=== PATIENT | female | born 1935 | race African-American/Black ===

== ENCOUNTER 2017-06-02 06:07 | Emergency (ER) | payer MEDICARE, MEDICAID ==
[~2017-06-02] VITALS: Ht 185.4 cm; Wt 90.7 kg
[2017-06-02 06:07] VITALS: BP 191/90
[2017-06-02] MEDS ORDERED: Solu-MEDROL 125mg Inj IVP ONE (06:15)
[2017-06-02] MEDS ORDERED: Albuterol ud Inhalation HHN ONE (06:15)
[2017-06-02] MEDS ORDERED: Ipratropium 0.02% Inh Soln 2.5ml UD HHN ONE (06:15)
[2017-06-02] MEDS ORDERED: COREG12.5 MG GT (06:28)
[2017-06-02] MEDS ORDERED: ALBUTEROL2.5 MG/3 M INH (06:28)
[2017-06-02] MEDS ORDERED: LEVOTHYROXINE112 MCG GT (06:28)
[2017-06-02] MEDS ORDERED: KEPPRA LIQ100 MG/1 M GT (06:28)
[2017-06-02] MEDS ORDERED: ARICEPT10 MG GT (06:28)
[2017-06-02] MEDS ORDERED: LISINOPRIL5 MG GT (06:28)
--- NOTE | 2017-06-02 06:30 | Emergency Room Report ---
History of Present Illness General Chief Complaint: Dyspnea/Respdistress Source: Medical Record, EMS Present Illness HPI Is an 82-year-old female with a history of CVA with weakness. She is bed bound a senior care patient. She presents with chief complaint of shortness of breath and wheezing. Onset this morning per EMS. shelter gave her a breathing treatment and epinephrine because of the wheezing and drop in oxygenation to the low 90s. Per EMS on arrival observation was on her percent. They brought her here. Unable to get any history from this patient. Allergies: Coded Allergies: PENICILLINS (Verified Allergy, Unknown, 06/02/17) Patient History Past Medical History: see triage record, old chart reviewed Past Surgical History: other Pertinent Family History: none Social History: Denies: smoking Last Menstrual Period: NA Now: No Immunizations: other Reviewed Nursing Documentation: PMH: Agreed, PSxH: Agreed Nursing Documentation-PM Hx Hypertension: Yes - hyperlipidemia, postprocedural hypothyroidism Review of Systems Respiratory: Reports: cough, shortness of breath, wheezing All Other Systems: limited - Because the patient condition Physical Exam Vital Signs Date Time Temp Pulse Resp B/P (MAP) Pulse Ox O2 Delivery O2 Flow Rate FiO2 06/02/17 05:59 99.3 102 22 191/90 100 Nasal Cannula 2.0 vitals low-grade fever and hypoxia. Also with high pressure Sp02 EP Interpretation: abnormal General Appearance: moderate distress Head: normocephalic, atraumatic Eyes: bilateral eye PERRL, bilateral eye EOMI ENT: dry mucus membranes Neck: full range of motion, supple, no meningismus Respiratory: chest non-tender, respiratory distress, decreased breath sounds, accessory muscle use, wheezing Cardiovascular #1: regular rate, rhythm, no murmur Gastrointestinal: normal bowel sounds, non tender, no mass, no organomegaly, no bruit, non-distended Musculoskeletal: back normal, other - Contracted Skin: warm/dry Procedures Critical Care Time Critical Care Time Critical care is mandated in this patient who presented with respiratory distress. Patient require my urgent intervention to attenuate the risks of respiratory collapse which may lead to cardiovascular collapse and . Critical care time is 35 minutes excluding any reportable procedure. Critical care time included evaluation, multiple reevaluation, looking at old charts, interpreting laboratory and diagnostic data, discussing case with patient and family and consultants, and charting. Medical Decision Making Diagnostic Impression: Primary Impression: Respiratory distress ER Course Patient to be in respiratory distress. Differential include ACS, PE, pneumonia , asthma exacerbation, CHF to name a few. Patient will be admitted versus transfer to [place]. I will sign this patient out to Dr. Perez for final disposition. EKG Diagnostic Results Rate: tachycardiac Rhythm: NSR ST Segments: other - NSST changes Rhythm Strip Diag. Results Rhythm Strip Time: 06:29 EP Interpretation: yes Rate: 105 Rhythm: NSR, no PVC's Last Vital Signs Date Time Temp Pulse Resp B/P (MAP) Pulse Ox O2 Delivery O2 Flow Rate FiO2 06/02/17 05:59 99.3 102 22 191/90 100 Nasal Cannula 2.0 Status: improved Disposition: [facility] Condition: Serious YINA GIFFORD M.D. Jun 02, 2017 06:30
[2017-06-02 07:14] LABS: BASOPHILS % (AUTO) 1.2 % (0.0-2.0); HEMATOCRIT 39.1 % (37.0-47.0); HEMOGLOBIN 12.6 G/DL (12.0-16.0); LYMPHOCYTES % (AUTO) 18.8 % (20.0-45.0); MEAN CORPUSCULAR VOLUME 80 FL (80-99); MONOCYTES % (AUTO) 11.7 % (1.0-10.0); NEUTROPHILS % (AUTO) 65.3 % (45.0-75.0); PLATELET COUNT 297 K/UL (150-450); RED BLOOD COUNT 4.91 M/UL (4.20-5.40); RED CELL DISTRIBUTION WIDTH 18.1 % (11.6-14.8); WHITE BLOOD COUNT 6.2 K/UL (4.8-10.8)
[2017-06-02 07:16] LABS: APPEARANCE,URINE CLOUDY; BILIRUBIN, URINE NEGATIVE (NEGATIVE); COLOR,URINE PALE YELLOW; GLUCOSE, URINE (UA) NEGATIVE (NEGATIVE); KETONES,URINE NEGATIVE (NEGATIVE); LEUKOCYTE ESTERASE ,URINE NEGATIVE (NEGATIVE); NITRITE,URINE NEGATIVE (NEGATIVE); PH,URINE 8 (4.5-8.0); PROTEIN,URINE 1+ (NEGATIVE); UROBILINOGEN,URINE NORMAL MG/DL (0.0-1.0)
[2017-06-02 07:45] LABS: ANION GAP 6 mmol/L (5-15); BLOOD UREA NITROGEN 19 mg/dL (7-18); CALCIUM 9.5 MG/DL (8.5-10.1); CARBON DIOXIDE 33 MMOL/L (21-32); CHLORIDE 102 MMOL/L (98-107); CREATININE 0.8 MG/DL (0.55-1.30); POTASSIUM 4.3 MMOL/L (3.5-5.1); SODIUM 141 MMOL/L (136-145)
[2017-06-02 07:58] LABS: ALANINE AMINOTRANSFERASE 21 U/L (12-78); ALBUMIN 3.2 G/DL (3.4-5.0); ALBUMIN/GLOBULIN RATIO 0.7 (1.0-2.7); ALKALINE PHOSPHATASE 116 U/L (46-116); ASPARTATE AMINO TRANSFERASE 28 U/L (15-37); BILIRUBIN,TOTAL 0.3 MG/DL (0.2-1.0); CKMB 1.1 NG/ML (0.0-3.6); CREATINE KINASE 372 U/L (26-308)
--- NOTE | 2017-06-02 10:29 | Diagnostic Imaging Report ---
Indication: Shortness of breath Technique: XRAY Chest 1v Comparison: None Findings: Patient is rotated and leaning to the right. Heart size within normal limits. There is hazy opacification of the left lung, possibly artifactual given rotation. There is mild interstitial opacification/edema. There is no definite pneumothorax. No large pleural effusion. No acute osseous abnormality seen. Surgical clips project over the right apex. Impression: Limited exam given. Interstitial opacification and hazy left lung opacities. Findings may be related to CHF with pulmonary edema and/or infectious infiltrate. These findings may also be artifactually exaggerated due to positioning and technique. Repeat exam recommended.
[2017-06-02 10:59] VITALS: BP 188/102
--- NOTE | 2017-06-02 15:12 | Emergency Room Report ---
Physical Exam Vital Signs Date Time Temp Pulse Resp B/P (MAP) Pulse Ox O2 Delivery O2 Flow Rate FiO2 06/02/17 05:59 99.3 102 22 191/90 100 Nasal Cannula 2.0 06/02/17 06:33 28 Medical Decision Making Diagnostic Impression: Primary Impression: Respiratory distress Additional Impression: Asthma exacerbation Qualified Codes: J45.901 - Unspecified asthma with (acute) exacerbation ER Course Hospital Course 82-year-old female presents ED in respiratory distress short of breath at care home Clinical course patient initially seen and evaluated by Dr. Yao; please see his note for full history and physical Labs - no leukocytosis noted, hemoglobin/hematocrit stable, ultralight okay, lactate okay troponins negative CXR - L sided haziness concerning for pneumonia EKG - sinus tachycardia She received antibiotics. Given breathing treatments suctioned by respiratory therapy with improved O2 sats Because of insurance patient will be transferred to [place] I feel this is a highly complex case requiring extensive working including EKG/ Rhythm strip, Xray/CT/US, Blood/urine lab work, repeat exams while in ED, and administration of strong opiates/narcotics for pain control, admission to hospital or close patient follow up. Diagnosis - resp distress, asthma exacerbation Transferred in serious condition Labs Test 06/02/17 06:21 06/02/17 07:00 White Blood Count 6.2 K/UL (4.8-10.8) Red Blood Count 4.91 M/UL (4.20-5.40) Hemoglobin 12.6 G/DL (12.0-16.0) Hematocrit 39.1 % (37.0-47.0) Mean Corpuscular Volume 80 FL (80-99) Mean Corpuscular Hemoglobin 25.6 PG (27.0-31.0) Mean Corpuscular Hemoglobin Concent 32.1 G/DL (32.0-36.0) Red Cell Distribution Width 18.1 % (11.6-14.8) Platelet Count 297 K/UL (150-450) Mean Platelet Volume 7.4 FL (6.5-10.1) Neutrophils (%) (Auto) 65.3 % (45.0-75.0) Lymphocytes (%) (Auto) 18.8 % (20.0-45.0) Monocytes (%) (Auto) 11.7 % (1.0-10.0) Eosinophils (%) (Auto) 3.0 % (0.0-3.0) Basophils (%) (Auto) 1.2 % (0.0-2.0) Prothrombin Time 10.6 SEC (9.30-11.50) Prothromb Time International Ratio 1.0 (0.9-1.1) Activated Partial Thromboplast Time 28 SEC (23-33) Sodium Level 141 MMOL/L (136-145) Potassium Level 4.3 MMOL/L (3.5-5.1) Chloride Level 102 MMOL/L (98-107) Carbon Dioxide Level 33 MMOL/L (21-32) Anion Gap 6 mmol/L (5-15) Blood Urea Nitrogen 19 mg/dL (7-18) Creatinine 0.8 MG/DL (0.55-1.30) Estimat Glomerular Filtration Rate mL/min (>60) Glucose Level 154 MG/DL (74-106) Lactic Acid Level 1.90 mmol/L (0.66-2.22) Calcium Level 9.5 MG/DL (8.5-10.1) Total Bilirubin 0.3 MG/DL (0.2-1.0) Aspartate Amino Transf (AST/SGOT) 28 U/L (15-37) Alanine Aminotransferase (ALT/SGPT) 21 U/L (12-78) Alkaline Phosphatase 116 U/L (46-116) Total Creatine Kinase 372 U/L (26-308) Creatine Kinase MB 1.1 NG/ML (0.0-3.6) Creatine Kinase MB Relative Index 0.2 Troponin I 0.000 ng/mL (0.000-0.056) Total Protein 7.9 G/DL (6.4-8.2) Albumin 3.2 G/DL (3.4-5.0) Globulin 4.7 g/dL Albumin/Globulin Ratio 0.7 (1.0-2.7) Urine Color Pale yellow Urine Appearance Cloudy Urine pH 8 (4.5-8.0) Urine Specific [place] 1.015 (1.005-1.035) Urine Protein 1+ (NEGATIVE) Urine Glucose (UA) Negative (NEGATIVE) Urine Ketones Negative (NEGATIVE) Urine Occult Blood 3+ (NEGATIVE) Urine Nitrite Negative (NEGATIVE) Urine Bilirubin Negative (NEGATIVE) Urine Urobilinogen Normal MG/DL (0.0-1.0) Urine Leukocyte Esterase Negative (NEGATIVE) Urine RBC 5-10 /HPF (0 - 2) Urine WBC 0-2 /HPF (0 - 2) Urine Squamous Epithelial Cells Moderate /LPF (NONE/OCC) Urine Amorphous Sediment Many /LPF (NONE) Urine Bacteria Few /HPF (NONE) EKG Diagnostic Results Rate: tachycardiac Rhythm: NSR ST Segments: no acute changes ASA given to the pt in ED: No Rhythm Strip Diag. Results EP Interpretation: yes Rhythm: NSR, no PVC's, no ectopy Chest X-Ray Diagnostic Results Chest X-Ray Diagnostic Results : Chest X-Ray Ordered: Yes # of Views/Limited/Complete: 1 View Indication: Shortness of Breath EP Interpretation: Yes Interpretation: no pneumothorax, other - L sided haziness Impression: Other - pneumonia Electronically Signed by: Electronically signed by Aldair Perez MD Last Vital Signs Date Time Temp Pulse Resp B/P (MAP) Pulse Ox O2 Delivery O2 Flow Rate FiO2 06/02/17 10:59 112 21 188/102 100 Room Air 06/02/17 10:21 98.8 06/02/17 06:57 2.0 28 Status: improved Disposition: [facility] Condition: Serious Referrals: [facility] (PCP) ALDAIR PEREZ M.D. Jun 02, 2017 15:12
--- NOTE | 2017-06-16 14:02 | Cardiology Report ---
APPROVED REPORT EKG Measurement Heart [id number] ME [id number] Sinus tachycardia Nonspecific T wave abnormality Abnormal ECG
== END 2017-06-02 10:57 | disposition short-term general hospital (02) ==
LOC: EDBD 06:07 → EMR 06:43
DX: J45.901 Unspecified asthma with (acute) exacerbation (principal); I10 Essential (primary) hypertension; E78.5 Hyperlipidemia, unspecified; E89.0 Postprocedural hypothyroidism; Z88.0 Allergy status to penicillin; Z74.01 Bed confinement status
CPT/HCPCS: 36415; 71045; 80053; 81003; 82550; 82553; 83605; 84484; 85025; 85610; 85730; 86710; 87081; 93005; 94640; 94664; 96365; 96375; 99285; J0360; J1956; J2930

== ENCOUNTER 2017-11-20 06:21 | Emergency (ER) | payer MEDICARE, MEDICAID ==
[~2017-11-20] VITALS: Ht 170.2 cm; Wt 108.9 kg
[~2017-11-20 06:21] MED LIST: ALBUTEROL2.5 MG/3 M INH; ARICEPT10 MG GT; COREG12.5 MG GT; KEPPRA LIQ100 MG/1 M GT; LEVOTHYROXINE112 MCG GT; LISINOPRIL5 MG GT
[2017-11-20] MEDS ORDERED: Cefepime HCl 1 GM in NS 55 ML IV STA (06:29)
[2017-11-20] MEDS ORDERED: Vancomycin 1 GM in NS 275 ML IV ONE (06:30)
[2017-11-20] MEDS ORDERED: Acetaminophen 650 MG SUPP RECTAL ONE (06:30)
[2017-11-20] MEDS ORDERED: LISINOPRIL10 MG ORAL (06:33)
--- NOTE | 2017-11-20 06:49 | Emergency Room Report ---
History of Present Illness General Chief Complaint: Altered Level of Consciousness Source: Medical Record, EMS Present Illness HPI Patient presents with altered level of consciousness. She usually is quite feisty but has dementia. She comes from a assisted facility. Patient is a DO NOT RESUSCITATE H/O dementia, HTN, Aortic valve sclerosis, seizures, G tube, hypothyroidism, CVA , IC hemorrhage No other history is available at this time. Allergies: Coded Allergies: PENICILLIN V (Verified Allergy, Unknown, 11/20/17) PENICILLINS (Verified Allergy, Unknown, 06/02/17) SIMVASTATIN (Verified Allergy, Unknown, 11/20/17) Patient History Limited by: medical condition Past Medical History: see triage record, old chart reviewed Social History: Denies: smoking, alcohol use, drug use Social History Narrative SNF Last Menstrual Period: n/a Reviewed Nursing Documentation: PMH: Agreed; PSxH: Agreed Nursing Documentation-PMH Past Medical History: No History, Except For Hx Hypertension: Yes - hyperlipidemia, postprocedural hypothyroidism Review of Systems All Other Systems: limited Physical Exam Vital Signs Date Time Temp Pulse Resp B/P (MAP) Pulse Ox O2 Delivery O2 Flow Rate FiO2 11/20/17 06:20 99.2 115 16 186/99 96 Room Air 99.1 Sp02 EP Interpretation: reviewed, normal General Appearance: other - Eyes open but noncommunicative, Chronically Ill Head: normocephalic Eyes: bilateral eye normal inspection, bilateral eye PERRL ENT: moist mucus membranes Neck: supple Respiratory: lungs clear, normal breath sounds Cardiovascular #1: regular rate, rhythm, systolic murmur - 3/6 Cardiovascular #2: 2+ radial (R) Gastrointestinal: normal inspection, normal bowel sounds, non tender, soft, no mass, other - G tube, overweight Musculoskeletal: back normal Neurologic: other - Vegetative state Psychiatric: other - Not responding to external stimuli but eyes open Skin: normal inspection, warm/dry Procedures Critical Care Time Critical Care Time Total Critical Care Time: 60 min bedside evaluation and treatment excludes procedures (EKG, CVP). Reason for critical care: sepsis, hypertensive urgency, ALOC Possible complications: hypotension, hypertension, IA, shock, arrhythmias, metabolic acidosis, end organ damage, respiratory failure. Interventions: CVP, treatment of sepsis, treatment of hypertensive urgency Course: Patient with AMS. Exam c/w sepsis (febrile, tachy, ALOC). CVP as no IV sites or ability to draw blood. Fluid resuscitation and antibiotics begun. Source appears pulmonary (new infiltrate and effusion, no other obvious source) . Discussed with [facility]. Problems with HTN prevented initial transfer. Aggressive treatment with multiple doses of hydralazine and repeated evaluations with eventual better control of BP. Discussed again with Grace. Consultations: nursing staff, EMS, , Sanjay Performed by: Dr. Toledo Tolerated well condition = serious Central Line Central Line : Consent: Emergent Central Line Lumen: triple Maximal Sterile Barrier Tech: yes cap, yes mask, yes sterile gown, yes sterile gloves, yes large sterile sheet, yes hand hygiene, yes chlorhexidine prep Central Line Postion: femoral (L) Complications: none Central Line Post Position: sutured, good blood return Attempts: One Patient Tolerated: Well Complications: None Progress Ultrasound used. Blood drawn for lab (30 ml) otherwise 1 ml EBL Medical Decision Making Diagnostic Impression: Primary Impression: Sepsis Qualified Codes: A41.9 - Sepsis, unspecified organism Additional Impressions: Pneumonia Qualified Codes: J18.1 - Lobar pneumonia, unspecified organism HTN (hypertension) Qualified Codes: I10 - Essential (primary) hypertension ER Course Patient presents with altered level of consciousness with fever. Differential includes sepsis, urinary tract infection, pneumonia amongst other Hospital infection. Based on the pulse oximetry in no respiratory symptoms as suspicion for urinary tract infection is high. The patient will be given IV hydration and also antibiotics after evaluation with EKG, chest x-ray and labs including blood cultures and lactate. Due to febrile illness, suspicion of new intracranial pathology low (although possible). Staff unable to start IV or draw blood. CVP started with ultrasound L femoral. Bloods drawn. EKG without injury. CXR L effusion and infiltrate. Labs with leukocytosis, elevated lactic acid. Urinalysis a relatively clear. Patient with decreasing lactic acid but still elevated after fluid bolus. Minimally tachycardic. [facility] has been called to work on arranging for transfer. Discussed with [facility] who accepts patient in transfer. Improved. More interactive. Abd soft. BP high, giving lisonpril. Still high bp. Hydralazine given. Multiple doses of hydralazine with improved BP. At 15:21 - BP 172/84. Calling for transport. Laboratory Tests Test 11/20/17 06:29 11/20/17 06:45 11/20/17 08:00 11/20/17 09:15 Sodium Level 136 MMOL/L (136-145) Potassium Level 3.9 MMOL/L (3.5-5.1) Chloride Level 96 MMOL/L (98-107) L Carbon Dioxide Level 29 MMOL/L (21-32) Anion Gap 11 mmol/L (5-15) Blood Urea Nitrogen 18 mg/dL (7-18) Creatinine 0.9 MG/DL (0.55-1.30) Estimate Glomerular Filtration Rate mL/min (>60) Glucose Level 200 MG/DL (74-106) H Calcium Level 9.3 MG/DL (8.5-10.1) Phosphorus Level 3.6 MG/DL (2.5-4.9) Magnesium Level 1.9 MG/DL (1.8-2.4) Total Bilirubin 0.8 MG/DL (0.2-1.0) Aspartate Amino Transferase (AST) 20 U/L (15-37) Alanine Aminotransferase (ALT) 29 U/L (12-78) Alkaline Phosphatase 116 U/L (46-116) Total Creatine Kinase 63 U/L (26-308) Pro-B-Type Natriuretic Peptide 486 pg/mL (0-125) H Total Protein 8.1 G/DL (6.4-8.2) Albumin 3.4 G/DL (3.4-5.0) Globulin 4.7 g/dL Albumin/Globulin Ratio 0.7 (1.0-2.7) L Lipase 107 U/L (73-393) Urine Color Pale yellow Urine Appearance Slightly cloudy Urine pH 6 (4.5-8.0) Urine Specific [place] 1.015 (1.005-1.035) Urine Protein 3+ (NEGATIVE) H Urine Glucose (UA) 2+ (NEGATIVE) H Urine Ketones Negative (NEGATIVE) Urine Occult Blood 4+ (NEGATIVE) H Urine Nitrite Negative (NEGATIVE) Urine Bilirubin Negative (NEGATIVE) Urine Urobilinogen Normal MG/DL (0.0-1.0) Urine Leukocyte Esterase Negative (NEGATIVE) Urine RBC 10-15 /HPF (0 - 2) H Urine WBC 0-2 /HPF (0 - 2) Urine Squamous Epithelial Cells Few /LPF (NONE/OCC) Urine Bacteria Few /HPF (NONE) Urine Hyaline Casts 0-2 /LPF (NONE) H Prothrombin Time 12.1 SEC (9.30-11.50) H Prothrombin Time INR 1.2 (0.9-1.1) H PTT 21 SEC (23-33) L Lactic Acid Level 5.90 mmol/L (0.4-2.0) H 4.00 mmol/L (0.66-2.22) H Troponin I 0.017 ng/mL (0.000-0.056) White Blood Count 12.5 K/UL (4.8-10.8) H Red Blood Count 3.89 M/UL (4.20-5.40) L Hemoglobin 10.0 G/DL (12.0-16.0) L Hematocrit 30.7 % (37.0-47.0) L Mean Corpuscular Volume 79 FL (80-99) L Mean Corpuscular Hemoglobin 25.7 PG (27.0-31.0) L Mean Corpuscular Hemoglobin Concent 32.6 G/DL (32.0-36.0) Red Cell Distribution Width 15.6 % (11.6-14.8) H Platelet Count 235 K/UL (150-450) Mean Platelet Volume 7.5 FL (6.5-10.1) Neutrophils (%) (Auto) % (45.0-75.0) Lymphocytes (%) (Auto) % (20.0-45.0) Monocytes (%) (Auto) % (1.0-10.0) Eosinophils (%) (Auto) % (0.0-3.0) Basophils (%) (Auto) % (0.0-2.0) Neutrophils % (Manual) Pending Lymphocytes % (Manual) Pending Platelet Estimate Pending Platelet Morphology Pending EKG Diagnostic Results Rate: tachycardiac ST Segments: no acute changes Rhythm Strip Diag. Results EP Interpretation: yes Rhythm: no PVC's, no ectopy, other - Sinus tachycardia Chest X-Ray Diagnostic Results Chest X-Ray Diagnostic Results : Chest X-Ray Ordered: Yes # of Views/Limited/Complete: 1 View Indication: Other EP Interpretation: Yes Interpretation: no pneumothorax, other - effusion and infiltrate L base Impression: Other Electronically Signed by: Electronically signed by Yonatan Toledo MD Last Vital Signs Date Time Temp Pulse Resp B/P (MAP) Pulse Ox O2 Delivery O2 Flow Rate FiO2 7/12/18 17:07 98.7 107 14 190/76 100 Room Air 98.5 Status: improved Disposition: [facility] Condition: Serious Yonatan Toledo M.D. Nov 20, 2017 06:49
[2017-11-20 07:12] LABS: BILIRUBIN, URINE NEGATIVE (NEGATIVE); COLOR,URINE PALE YELLOW; GLUCOSE, URINE (UA) 2+ (NEGATIVE); KETONES,URINE NEGATIVE (NEGATIVE); LEUKOCYTE ESTERASE ,URINE NEGATIVE (NEGATIVE); NITRITE,URINE NEGATIVE (NEGATIVE); PH,URINE 6 (4.5-8.0); PROTEIN,URINE 3+ (NEGATIVE); UROBILINOGEN,URINE NORMAL MG/DL (0.0-1.0)
[2017-11-20 07:20] LABS: APPEARANCE,URINE SLIGHTLY CLOUDY
[2017-11-20 08:26] VITALS: BP 165/89
[2017-11-20 08:43] LABS: ANION GAP 11 mmol/L (5-15); BLOOD UREA NITROGEN 18 mg/dL (7-18); CALCIUM 9.3 MG/DL (8.5-10.1); CARBON DIOXIDE 29 MMOL/L (21-32); CHLORIDE 96 MMOL/L (98-107); CREATININE 0.9 MG/DL (0.55-1.30); POTASSIUM 3.9 MMOL/L (3.5-5.1); SODIUM 136 MMOL/L (136-145)
[2017-11-20 08:44] LABS: INR 1.2 (0.9-1.1)
[2017-11-20 08:53] LABS: ALANINE AMINOTRANSFERASE 29 U/L (12-78); ALBUMIN 3.4 G/DL (3.4-5.0); ALBUMIN/GLOBULIN RATIO 0.7 (1.0-2.7); ALKALINE PHOSPHATASE 116 U/L (46-116); ASPARTATE AMINO TRANSFERASE 20 U/L (15-37); BILIRUBIN,TOTAL 0.8 MG/DL (0.2-1.0); CREATINE KINASE 63 U/L (26-308); PHOSPHORUS 3.6 MG/DL (2.5-4.9)
[2017-11-20 09:34] LABS: HEMATOCRIT 30.7 % (37.0-47.0); MEAN CORPUSCULAR VOLUME 79 FL (80-99); PLATELET COUNT 235 K/UL (150-450); RED BLOOD COUNT 3.89 M/UL (4.20-5.40); RED CELL DISTRIBUTION WIDTH 15.6 % (11.6-14.8); WHITE BLOOD COUNT 12.5 K/UL (4.8-10.8)
[2017-11-20 09:46] VITALS: BP 178/101
[2017-11-20] MEDS ORDERED: VANCOMYCIN IVPB ONE (10:08)
[2017-11-20] MEDS ORDERED: [UNRECOGNIZED DRUG - OTHER] IVPB ONE (10:08)
[2017-11-20] MEDS ORDERED: Vancomycin 1gm inj IVPB ONE (10:09)
[2017-11-20 10:35] VITALS: BP 207/104
[2017-11-20] MEDS ORDERED: Lisinopril 10mg tab GT ONE (11:00)
--- NOTE | 2017-11-20 11:32 | Diagnostic Imaging Report ---
Indication: Chest pain Comparison: 06/02/2017 A single view chest radiograph was obtained. Findings: Interstitial opacities are present bilaterally. Heart is borderline enlarged. Bones are osteopenic. IMPRESSION: Suspected interstitial edema
[2017-11-20 12:45] VITALS: BP 211/102
[2017-11-20 14:36] VITALS: BP 211/116
[2017-11-20 17:07] VITALS: BP 190/76
--- NOTE | 2017-11-23 12:21 | Cardiology Report ---
APPROVED REPORT EKG Measurement Heart [id number] Sinus tachycardia Nonspecific T wave abnormality Abnormal ECG
== END 2017-11-20 17:07 | disposition short-term general hospital (02) ==
LOC: EDBD 06:21 → EMR 07:09
DX: A41.9 Sepsis, unspecified organism (principal); J18.9 Pneumonia, unspecified organism; I10 Essential (primary) hypertension; E78.5 Hyperlipidemia, unspecified; E89.0 Postprocedural hypothyroidism; Z88.0 Allergy status to penicillin; Z88.8 Allergy status to other drugs, medicaments and biological substances
CPT/HCPCS: 36415; 71045; 80053; 81003; 82550; 83605; 83690; 83735; 83880; 84100; 84484; 85007; 85025; 85610; 85730; 87040; 87081; 93005; 96365; 96367; 96375; 96376; 99291; J0360; J0692; J1956; J3370; J7050

== ENCOUNTER 2018-03-08 17:33 | Emergency (ER) | payer MEDICARE, MEDICAID ==
[~2018-03-08] VITALS: Ht 167.6 cm; Wt 86.2 kg
[~2018-03-08 17:33] MED LIST changes: +LISINOPRIL10 MG ORAL
[2018-03-08 17:56] VITALS: BP 150/91
[2018-03-08 19:30] LABS: APPEARANCE,URINE SLIGHTLY CLOUDY; BILIRUBIN, URINE NEGATIVE (NEGATIVE); COLOR,URINE AMBER; GLUCOSE, URINE (UA) NEGATIVE (NEGATIVE); KETONES,URINE 1+ (NEGATIVE); LEUKOCYTE ESTERASE ,URINE 1+ (NEGATIVE); NITRITE,URINE NEGATIVE (NEGATIVE); PH,URINE 6.5 (4.5-8.0); PROTEIN,URINE 3+ (NEGATIVE); UROBILINOGEN,URINE 1 MG/DL (0.0-1.0)
[2018-03-08 19:30] LABS: BASOPHILS % (AUTO) 1.7 % (0.0-2.0); EOSINOPHILS % (AUTO) 1.5 % (0.0-3.0); HEMOGLOBIN 12.9 G/DL (12.0-16.0); LYMPHOCYTES % (AUTO) 15.7 % (20.0-45.0); MEAN CORPUSCULAR VOLUME 81 FL (80-99); MONOCYTES % (AUTO) 5.5 % (1.0-10.0); NEUTROPHILS % (AUTO) 75.6 % (45.0-75.0); PLATELET COUNT 330 K/UL (150-450); RED BLOOD COUNT 4.83 M/UL (4.20-5.40); RED CELL DISTRIBUTION WIDTH 15.2 % (11.6-14.8); WHITE BLOOD COUNT 7.7 K/UL (4.8-10.8)
[2018-03-08 20:13] LABS: ANION GAP 8 mmol/L (5-15); BLOOD UREA NITROGEN 18 mg/dL (7-18); CALCIUM 9.8 MG/DL (8.5-10.1); CARBON DIOXIDE 31 MMOL/L (21-32); CHLORIDE 101 MMOL/L (98-107); CREATININE 0.7 MG/DL (0.55-1.30); POTASSIUM 4.5 MMOL/L (3.5-5.1); SODIUM 140 MMOL/L (136-145)
[2018-03-08 20:26] LABS: ALANINE AMINOTRANSFERASE 26 U/L (12-78); ALBUMIN 3.3 G/DL (3.4-5.0); ALBUMIN/GLOBULIN RATIO 0.7 (1.0-2.7); ALKALINE PHOSPHATASE 112 U/L (46-116); ASPARTATE AMINO TRANSFERASE 27 U/L (15-37); BILIRUBIN,TOTAL 0.5 MG/DL (0.2-1.0); CKMB 1.3 NG/ML (0.0-3.6); CREATINE KINASE 68 U/L (26-308); PHOSPHORUS 3.3 MG/DL (2.5-4.9)
[2018-03-08] MEDS ORDERED: Carvedilol 25mg Tab GT ONE (20:45)
[2018-03-08 21:00] VITALS: BP 163/79
--- NOTE | 2018-03-08 21:31 | Emergency Room Report ---
History of Present Illness General Chief Complaint: Malfunctioning Gastric Tube Source: Patient Present Illness HPI Patient is a 82-year-old female who is brought in by EMS from nursing facility after increased fever and dislodgment of G-tube. Patient reportedly had been having increased fever. She had been noted to have pulled out her G-tube per excellence coach. The patient was from nursing facility however they were unable to be contacted. Allergies: Coded Allergies: PENICILLIN V (Verified Allergy, Unknown, 11/20/17) PENICILLINS (Verified Allergy, Unknown, 06/02/17) SIMVASTATIN (Verified Allergy, Unknown, 11/20/17) Patient History Reviewed Nursing Documentation: PMH: Agreed; PSxH: Agreed Nursing Documentation-PMH Hx Hypertension: Yes - hyperlipidemia, postprocedural hypothyroidism Review of Systems All Other Systems: limited - by mental status Physical Exam Vital Signs Date Time Temp Pulse Resp B/P (MAP) Pulse Ox O2 Delivery O2 Flow Rate FiO2 03/08/18 17:34 97.0 118 24 134/89 97 Room Air 03/08/18 17:56 2.0 General Appearance: non-toxic, Chronically Ill Head: atraumatic Eyes: bilateral eye PERRL ENT: moist mucus membranes Neck: limited range of motion Respiratory: lungs clear, normal breath sounds Cardiovascular #1: normal peripheral pulses Gastrointestinal: non tender, soft, other - Gtube site patent with tube maximally inserted, slight erythema to stoma sit Musculoskeletal: decreased range of motion Neurologic: alert, motor weakness, other - increased tone, contractures, nonverbal Psychiatric: depressed affect Skin: normal inspection Medical Decision Making Diagnostic Impression: Primary Impression: Malfunction of percutaneous endoscopic gastrostomy (PEG) tube Additional Impressions: Lactic acidosis Uncontrolled hypertension ER Course Patient presented for G-tube abnormality. Patient was noted to be nonverbal. The patient's G-tube was noted to deep inside the stoma and was noted to be somewhat difficult to move.The patient G-tube was replaced with a 24 [place] G- tube. The procedure x-ray showed adequate G-tube placement. Patient was given IV fluids she is given medications for blood pressure control. The patient was discussed with Dr. Thornton from [facility] who will arrange transfer. Labs Test 03/08/18 19:00 03/08/18 19:15 03/08/18 19:30 03/08/18 20:30 White Blood Count 7.7 K/UL (4.8-10.8) Red Blood Count 4.83 M/UL (4.20-5.40) Hemoglobin 12.9 G/DL (12.0-16.0) Hematocrit 39.0 % (37.0-47.0) Mean Corpuscular Volume 81 FL (80-99) Mean Corpuscular Hemoglobin 26.6 PG (27.0-31.0) Mean Corpuscular Hemoglobin Concent 32.9 G/DL (32.0-36.0) Red Cell Distribution Width 15.2 % (11.6-14.8) Platelet Count 330 K/UL (150-450) Mean Platelet Volume 6.6 FL (6.5-10.1) Neutrophils (%) (Auto) 75.6 % (45.0-75.0) Lymphocytes (%) (Auto) 15.7 % (20.0-45.0) Monocytes (%) (Auto) 5.5 % (1.0-10.0) Eosinophils (%) (Auto) 1.5 % (0.0-3.0) Basophils (%) (Auto) 1.7 % (0.0-2.0) Sodium Level 140 MMOL/L (136-145) Potassium Level 4.5 MMOL/L (3.5-5.1) Chloride Level 101 MMOL/L (98-107) Carbon Dioxide Level 31 MMOL/L (21-32) Anion Gap 8 mmol/L (5-15) Blood Urea Nitrogen 18 mg/dL (7-18) Creatinine 0.7 MG/DL (0.55-1.30) Estimat Glomerular Filtration Rate mL/min (>60) Glucose Level 147 MG/DL (74-106) Calcium Level 9.8 MG/DL (8.5-10.1) Phosphorus Level 3.3 MG/DL (2.5-4.9) Magnesium Level 2.0 MG/DL (1.8-2.4) Total Bilirubin 0.5 MG/DL (0.2-1.0) Aspartate Amino Transf (AST/SGOT) 27 U/L (15-37) Alanine Aminotransferase (ALT/SGPT) 26 U/L (12-78) Alkaline Phosphatase 112 U/L (46-116) Total Creatine Kinase 68 U/L (26-308) Creatine Kinase MB 1.3 NG/ML (0.0-3.6) Creatine Kinase MB Relative Index 1.9 Troponin I 0.008 ng/mL (0.000-0.056) Total Protein 8.3 G/DL (6.4-8.2) Albumin 3.3 G/DL (3.4-5.0) Globulin 5.0 g/dL Albumin/Globulin Ratio 0.7 (1.0-2.7) Urine Color [place] Urine Appearance Slightly cloudy Urine pH 6.5 (4.5-8.0) Urine Specific [place] 1.020 (1.005-1.035) Urine Protein 3+ (NEGATIVE) Urine Glucose (UA) Negative (NEGATIVE) Urine Ketones 1+ (NEGATIVE) Urine Blood 4+ (NEGATIVE) Urine Nitrite Negative (NEGATIVE) Urine Bilirubin Negative (NEGATIVE) Urine Ictotest Negative (NEGATIVE) Urine Urobilinogen 1 MG/DL (0.0-1.0) Urine Leukocyte Esterase 1+ (NEGATIVE) Urine RBC 20-30 /HPF (0 - 2) Urine WBC 5-10 /HPF (0 - 2) Urine Squamous Epithelial Cells Moderate /LPF (NONE/OCC) Urine Bacteria Moderate /HPF (NONE) Lactic Acid Level 3.00 mmol/L (0.4-2.0) 2.90 mmol/L (0.66-2.22) Last Vital Signs Date Time Temp Pulse Resp B/P (MAP) Pulse Ox O2 Delivery O2 Flow Rate FiO2 03/08/18 21:00 114 207/103 03/08/18 17:56 98.9 16 98 Nasal Cannula 2.0 Status: unchanged Disposition: [facility]FER [facility]OS[facility] Condition: Serious Referrals: NON PHYSICIAN (PCP) Familia Maxwell MD Mar 08, 2018 21:31
[2018-03-08 22:00] VITALS: BP 151/71
[2018-03-08 23:48] VITALS: BP 140/84
--- NOTE | 2018-03-09 12:17 | Diagnostic Imaging Report ---
Indication: Dyspnea Comparison: 11/20/2017 A single view chest radiograph was obtained. Findings: Pulmonary vascular prominence and interstitial edema demonstrated. Heart size is within normal limits. Bones are slightly osteopenic. IMPRESSION: Suspected interstitial edema
--- NOTE | 2018-03-09 12:17 | Diagnostic Imaging Report ---
Indication: Gastrostomy check Comparison: None Single view of the abdomen obtained Findings: There is a catheter projected over the body of the stomach. There is contrast material within the stomach noted. There is a considerable breathing motion limiting evaluation. IMPRESSION: Gastrostomy position appears satisfactory. No obvious leak identified with limitation due to motion.
== END 2018-03-08 23:55 ==
LOC: EDUNIT# 17:33 → EDBD 17:33 → EMR 17:46
DX: K94.23 Gastrostomy malfunction (principal); E87.2 Acidosis; I10 Essential (primary) hypertension; E78.5 Hyperlipidemia, unspecified; E03.9 Hypothyroidism, unspecified; Z88.0 Allergy status to penicillin; Z88.8 Allergy status to other drugs, medicaments and biological substances
CPT/HCPCS: 36415; 71045; 74018; 80053; 81003; 82550; 82553; 83605; 83735; 84100; 84484; 85025; 87040; 87086; 93005; 96361; 96365; 96375; 99284; J0360; J1956